=== PATIENT | female | born 1970 | race Caucasian/White ===

== ENCOUNTER → 2017-03-31 | Outpatient (CLI) | payer BC ==
[~2017-03-31] MED LIST: APIX1TAB PO; ATR10 PO; CEFD1CAP14 PO; DXM/4 PO; ELQ25 PO; FAMO1TAB47 PO; FLUT1SPR12 NAE; LAMO100T16 PO; LAMO25TA PO; MULT-506 PO; OXYC-57 PO; SPR25 PO; TRIATAB3 PO; VNTHFA/IN INH; ZONI100C39 PO; lovenox
--- NOTE | 2017-03-31 12:02 | DIAGNOSTIC IMAGING REPORT ---
LEFT LOWER EXTREMITY WITHOUT CT DOSE: 262.83 mGy.cm HISTORY: Ankle pain LEFT ANKLE PAIN TECHNIQUE: Multiaxial CT images of the left ankle were performed and reformatted in the sagittal and coronal plane without the use of contrast. A dose lowering technique was utilized adhering to the principles of ALARA. COMPARISON: None. FINDINGS: Findings consistent with open reduction internal fixation of what appears to been an old calcaneal fracture. There appears to be complete bony union. The articular services of the tibia as well as talus appears unremarkable. A plate and multiple screws are present at the lateral margin of the calcaneus. No acute bony abnormalities appreciated. Alignment is anatomic throughout. Findings consistent with a small old avulsion from the dorsal aspect of the navicular/anterior talus. Findings suggesting old healed fracture of the distal fibula. IMPRESSION: 1. Findings consistent with a prior calcaneal reconstruction procedure. 2. The hardware appears intact with healing considered essentially complete. 3. The ankle mortise is aligned anatomically with the articular services intact. 4. No acute process is identified. The above report was generated using voice recognition software. It may contain grammatical, syntax or spelling errors. Electronically signed by: Osmar Silveira M.D. 03/31/2017 12:01 PM Dictated Date/Time: 03/31/2017 11:56 AM
== END | disposition home or self-care (01) ==
LOC: C.CTS 11:26
PROVIDERS: ATTEND Orthopaedic Surgery Sports Medicine
DX: M25.572 Pain in left ankle and joints of left foot (principal)

== ENCOUNTER 2017-05-05 09:07 | Day surgery (SDC) | payer BC ==
[2017-04-18 09:41] VITALS: Ht 167.6 cm; Wt 93.0 kg
--- NOTE | 2017-04-18 10:21 | PAT Medication Instructions ---
Service Date Apr 18, 2017. Current Home Medication List Albuterol Hfa (Ventolin Hfa), 2-4 PUFFS INH Q6H PRN for PRN Apixaban (Eliquis), 2.5 MG PO BID Fluticasone Propionate (Nasal) (Flonase Allergy Relief Ch), 1 SPRAY SMITH DAILY PRN for ALLERGY Lamotrigine (Lamictal), 25 MG PO BID Lamotrigine (Lamictal), 100 MG PO BID Multivitamin (Multivitamin), 1 TAB PO QAM Triamterene/Hctz (Triamterene/Hctz 37.5-25MG), 1 TAB PO QAM Zonisamide (Zonegran), 200 PO BID Medication Instructions For Your Scheduled Surgery - Instructions to be given by prescribing physicians: Apixaban (Eliquis), 2.5 MG PO BID - Hold the following medications the morning of surgery: Multivitamin (Multivitamin), 1 TAB PO QAM Triamterene/Hctz (Triamterene/Hctz 37.5-25MG), 1 TAB PO QAM - Take the following medications the morning of surgery with a sip of water OTHERWISE NOTHING TO EAT OR DRINK AFTER MIDNIGHT: Albuterol Hfa (Ventolin Hfa), 2-4 PUFFS INH Q6H PRN for PRN (use if needed; BRING TO HOSPITAL) Zonisamide (Zonegran), 200 PO BID Lamotrigine (Lamictal), 25 MG PO BID Lamotrigine (Lamictal), 100 MG PO BID Fluticasone Propionate (Nasal) (Flonase Allergy Relief Ch), 1 SPRAY SMITH DAILY PRN for ALLERGY - Take the following medications as scheduled the night before surgery: Albuterol Hfa (Ventolin Hfa), 2-4 PUFFS INH Q6H PRN for PRN Zonisamide (Zonegran), 200 PO BID Lamotrigine (Lamictal), 25 MG PO BID Lamotrigine (Lamictal), 100 MG PO BID If you have any questions please call us at [phone] or [phone] or [phone]
[2017-04-18 12:37] LABS: URINE APPEARANCE CLEAR (CLEAR); URINE BILIRUBIN NEG (NEG); URINE COLOR YELLOW; URINE NITRITE NEG (NEG); URINE PH 7.5 (4.5-7.5); URINE SPECIFIC GRAVITY 1.022 (1.000-1.030); UROBILINOGEN NEG (NEG)
[2017-04-18 12:40] LABS: BASO % 0.3 %; BASO ABS # 0.02 K/uL (0-0.2); COMPLETE YES; EOS % 1.3 %; HEMATOCRIT 43.1 % (37-47); LYMPH % 22.6 %; LYMPH ABS # 1.41 K/uL (1.2-3.4); MEAN CELL VOLUME 98.9 fL (80-100); MEAN CORPUSCULAR HEMOGLOBIN 32.3 pg (25-34); MEAN CORPUSCULAR HGB CONC 32.7 g/dl (32-36); MEAN PLATELET VOLUME 9.8 fL (7.4-10.4); MONO % 8.2 %; NEUT % 67.6 %; PLATELET COUNT 317 K/uL (130-400); RED BLOOD COUNT 4.36 M/uL (4.2-5.4); WHITE BLOOD COUNT 6.24 K/uL (4.8-10.8)
[2017-04-18 12:48] LABS: BUN/CREATININE RATIO 18.8 (10-20); CALCIUM 9.1 mg/dl (8.5-10.1); CREATININE 1.1 mg/dl (0.60-1.20); INR 0.9 (0.9-1.1); PARTIAL THROMBOPLASTIN RATIO 1.2; POTASSIUM 4.5 mmol/L (3.5-5.1); PROTHROMBIN TIME (PATIENT) 10.1 SECONDS (9.0-12.0)
[2017-04-18 12:51] LABS: MANUAL MICROSCOPIC REQUIRED? NO; REVIEW REQ? NO
--- NOTE | 2017-05-04 16:41 | History and Physical ---
History & Physical Date May 04, 2017. Chief Complaint left hindfoot pain History of Present Illness The patient is a 47 year old female with complaints of chronic left ankle and hindfoot pain. She has a hx of a severe calcaneus and hindfoot injury in an accident. She had an ORIF of the calcaneus and primary subtalar fusion performed. She has had chronic pain since the procedure. She is being set up for surgical management of her pain. Past Medical/Surgical History Surgical Problems: (1) H/O brain surgery Allergies Coded Allergies: Phenobarbital (Unverified Allergy, Intermediate, CAUSES DEPRESSION, 04/18/17 ) Home Medications Scheduled Apixaban (Eliquis), 2.5 MG PO BID Lamotrigine (Lamictal), 25 MG PO BID Lamotrigine (Lamictal), 100 MG PO BID Multivitamin (Multivitamin), 1 TAB PO QAM Triamterene/Hctz (Triamterene/Hctz 37.5-25MG), 1 TAB PO QAM Zonisamide (Zonegran), 200 PO BID Scheduled PRN Albuterol Hfa (Ventolin Hfa), 2-4 PUFFS INH Q6H PRN for PRN Fluticasone Propionate (Nasal) (Flonase Allergy Relief Ch), 1 SPRAY SMITH DAILY PRN for ALLERGY Physical Examination Skin: warm/dry, no rash Eyes: normal inspection ENT: normal ENT inspection Head: normocephalic, atraumatic Neck: supple, trachea midline Respiratory/Chest: lungs clear, normal breath sounds, no respiratory distress Cardiovascular: regular rate, rhythm, no murmur Abdomen / GI: normal bowel sounds, non tender Extremities: + pertinent finding (Left ankle: hindfoot swelling. Tender at the anterior ankle and with PROM of the ankle. Tender at the sinus tarsi and heel. Hypersensitivity of the lateral ankle and foot. ) Neurologic/Psych: no motor/sensory deficits, alert, oriented x 3 Diagnosis Left ankle osteoarthritis and arthrofibrosis. Possible left subtalar fusion nonunion/partial union. Painful hardware left ankle Left achilles contracture. Left sural nerve neuropathy. Plan of Treatment Recommend a left ankle scope with debridement arthrofibrosis, exostectomy tibia and talus, open removal hardware, open lateral calcaneal wall decompression, possible revision subtalar fusion, possible application of Vivigen, possible perc. AYAN, open sural nerve decompression and neurolysis. All potential risks, benefits, complications, alternatives and rehab have been discussed with the patient and the patient wishes to proceed as indicated. She will be scheduled at 05.05.17 with Lovenox SQ for DVT prophylaxis.
[~2017-05-05] VITALS: Ht 167.6 cm; Wt 93.0 kg
[~2017-05-05 09:07] MED LIST changes: -ATR10 PO; +ATROPINE SULFATE 0.1 MG/ML 5ML SYR IV PRN; +CEFAZOLIN 2000 MG/60 ML D5W 60 ML IV SCH; -CEFD1CAP14 PO; -DXM/4 PO; -ELQ25 PO; +EpHEDrine SULFATE INJ 50 MG/ML AMP IV PRN; -FAMO1TAB47 PO; +FENTANYL CITRATE INJ 50 MCG/1 ML 2 ML VIAL IV PRN; +HYDROmorphone INJ 1 MG/ML SYR IV PRN; +LACTATED RINGER'S 1000ML 1,000 ML IV SCH; +ONDANSETRON INJ 2 MG/ML 2 ML VIAL IV PRN; -OXYC-57 PO; +ROPIVACAINE 0.5% 5 MG/ML 30 ML VIAL ONE; -SPR25 PO; -lovenox
[2017-05-05] MEDS ORDERED: lovenox (09:59)
[2017-05-05 10:06] VITALS: BP 114/79; PULSE 75; TEMP 36.6; O2SAT 99
[2017-05-05] MEDS ORDERED: FENTANYL CITRATE INJ 50 MCG/1 ML 2 ML VIAL ONE ×2 (11:21→14:43)
[2017-05-05] MEDS ORDERED: MIDAZOLAM HCL 1 MG/ML 2ML VIAL ONE ×3 (11:21→15:32)
[2017-05-05] MEDS ORDERED: BACITRACIN 50000 UNIT VIAL ONE (11:55)
[2017-05-05] MEDS ORDERED: BUPIVACAINE/EPINEPHRINE 0.25% 1:200,000 30 ML VIAL ONE (11:55)
--- NOTE | 2017-05-05 11:56 | History & Physical Bridge Note ---
H&P Re-Evaluation Bridge Note: I have examined the patient, reviewed the History & Physical and in the interval since the performance of the History & Physical I have noted the following changes of clinical significance: No changes noted
[2017-05-05] MEDS ORDERED: EpINEphrine HCL INJ 1 MG/ML 5ML SYRINGE ONE (13:00)
[2017-05-05] MEDS ORDERED: PROPOFOL IV EMULSION 10 MG/ML 20 ML VIAL IV ONE (15:14)
[2017-05-05] MEDS ORDERED: ONDANSETRON INJ 2 MG/ML 2 ML VIAL ONE (15:14)
[2017-05-05] MEDS ORDERED: ROCURONIUM BROMIDE 10 MG/ML 5 ML VIAL IV ONE (15:14)
[2017-05-05] MEDS ORDERED: DEXAMETHASONE SOD INJ 4 MG/ML VIAL ONE (15:14)
[2017-05-05] MEDS ORDERED: LIDOCAINE HCL 2% 2 ML VIAL (20MG/ML) ONE (15:14)
[2017-05-05] MEDS ORDERED: HYDROmorphone INJ 2 MG/ML SYR/VIAL ONE (15:15)
--- NOTE | 2017-05-05 15:33 | DIAGNOSTIC IMAGING REPORT ---
LEFT ANKLE 2 VIEWS CLINICAL HISTORY: Postoperative evaluation. COMPARISON STUDY: CT of the left ankle March 31, 2017. Fluoroscopy time: 10 seconds. FINDINGS: Single lateral fluoroscopic image demonstrates placement of a cannulated screw projecting over the hindfoot. Plate and screws shown on prior exam have been removed. Surgical device within the calcaneus persist. Subtalar joint fusion is noted. IMPRESSION: Intraoperative fluoroscopic image of the left ankle. Electronically signed by: Jonathan Villegas M.D. 05/05/2017 3:32 PM Dictated Date/Time: 05/05/2017 3:29 PM
--- NOTE | 2017-05-05 16:21 | [facility] Operative Report ---
Operative Report Operative Date May 05, 2017. Pre-Operative Diagnosis left exostosis of the tibia, exostosis of the talus. Arthrofibrosis of the ankle. Ankle and foot osteoarthritis, painful hardware, subfibular impingement. Exostosis of the calcaneus. Post-Operative Diagnosis left exostosis of the tibia, exostosis of the talus. Arthrofibrosis of the ankle. Ankle and foot osteoarthritis, painful hardware, subfibular impingement. Exostosis of the fibula. Exostosis of the calcaneus. Peroneus Brevis and peroneus longus longus Tendon tears, Subfibular impingement Procedure(s) Performed Left Ankle Arthroscopy with Debridement Arthrofibrosis, and Exostectomy Tibia / Talus; synovectomy ankle. Debridement peroneal tendons with repair peroneus brevis tendon tear; Open Removal Hardware (Plate and Screws) Lateral Calcaneus; Revision Subtalar Fusion with allograft; Exostectomy Of Fibula; Lateral Calcaneal Wall Decompression; Surgeon Dr. Rodrigeuz Culturist Surgeon(s) none Estimated Blood Loss 20 mL Findings See dictation Specimens a. explanted hardware Drains Hemovac times one Anesthesia Gen. LMA with popliteal block Complication(s) None Disposition Recovery Room / PACU Indications This is a 47-year-old woman who would previously sustained a traumatic fracture is location of her left calcaneus and subtalar joint. She had partial extrusion and crush injury of her left calcaneus and was cared for this injury at [facility] several years ago by Barrington Jarrett M.D. Patient underwent a primary subtalar fusion with lateral calcaneal plating. She developed exostoses and arthrofibrosis the ankle joint and had subfibular impingement on the plate as documented by radiographic and CT scanning of the lower extremity. She had failed all conservative measures and was scheduled for surgery as indicated. Description of Procedure All potential risks, benefits, complications, alternatives, rehabilitation, potential for incomplete relief of symptoms, need for further surgery, persistent numbness, weakness, stiffness, persistent pain, DVT, PE, , bone fracture, hardware breakage, nonunion, malunion or wound complications were discussed with the patient. The patient decided to proceed with the procedure as indicated. Procedure: The patient was administered a popliteal block in the preoperative holding area. She was then taken to the operative suite and placed supine on the operating table. After review of the consent and identification of proper operative site the patient was then anesthetized and an LMA was placed. A tourniquet was placed high on the left thigh over cast padding. The left lower extremity was then sterilely prepped and draped in usual fashion. Left lower extremities and elevated and exsanguinated and Esmarch bandage. The tourniquet was inflated to 350 mmHg. Approximately 12 mL of quarter percent Marcaine with epinephrine was injected into the ankle joint. An 11 blade scalpel was used to make an incision medial to the tibialis anterior follow placement of blunt trocar and sleeve, camera and inflow. Next lateral portal was established using an 18-gauge spinal needle followed by 11 blade scalpel incision. Arthrofibrosis was noted to be present in the ankle joint. A 3.5 mm sector pari introduced to the lateral portal and debridement of arthrofibrosis was performed. Next anterior exostoses of the tibia and talus were noted and these were then resected using a 4.0 mm barrel bur. After these resected particulate debris was flushed from the joint the articular surfaces were inspected and noted to be intact. No Os- Jamar defects. No particular softening of the joint surfaces. Good alignment. No loose bodies. The gutters were inspected noted to be unremarkable. Next the arthroscope was removed from the joint and the portal sites were closed using interrupted 4-0 nylon sutures. A 15 blade scalpel was then used to make an incision centered over the sinus Tarsi from the base the fourth metatarsal to the tip of the fibula. This incision was then deepened to the subcutaneous tissue. Meticulous hemostasis was achieved with cautery. The peroneal tendon sheath was identified and retracted and protected. The lateral plate and screws previously placed were identified and the plate and screws then removed. The plate was noted to have eroded into the distal aspect of the fibula. The lateral wall the calcaneus is noted to be prominent and resulting in subfibular impingement. The lateral wall /exostosis of the lateral calcaneus was then resected using a large osteotome and mallet. This bone was then saved for later graft use. The resultant exostosis of the distal tip of the fibula was also resected with a rongeur. Next the subtalar joint was inspected. The posterior facet had almost completely fused however over 50% of the subtalar joint did not fuse particular the anterior and middle facets of the subtalar joint had not fused. Next a curette and rongeur were then used to resect the remainder of the articular surfaces from the anterior and middle facets and this was then irrigated until clear with sternal saline. Next the joint surfaces were then further prepared with a 2 mm drill bit and a osteotome and mallet to increase surface area of the fusion space. Next morcellized autograft and approximately 15 mL of allograft was then impacted in the sinus Tarsi. Next a stab incision was made in the plantar aspect of the heel and a 2.25 mm guidepin was placed across the subtalar joint under live fluoroscopic assistance. This and followed by placement of a 7.3 mm cannulated screw to compress the subtalar joint. Next the peroneal tendons were then inspected. The peroneus longus and peroneus brevis were noted to have tears. The peroneus longus was partially torn and was debrided with a Metzenbaum scissor. The peroneus brevis tendon had been cut during previous surgery and this tendon was then carefully debrided with a Metzenbaum scissor and then repaired with a #2 ultra braid suture using a Krakw locking loop suture. This was then appropriately reapproximated. The wound was then irrigated with sterile normal saline. A 10 Mauritanian single lumen Hemovac drain was then placed into the incision site exiting on the dorsal lateral aspect of the foot. The peroneal tendon sheath was then closed using 2-0 Vicryl. The deep soft tissue and extensor digitorum brevis were then closed using 2-0 Vicryl. The dermis was then closed using buried interrupted 3-0 Vicryl. Skin was closed using 4-0 nylon. A sterile compressive dressing consisting of Acticoat, sterile 4 x 4's, 4 inch web roll, Tereso Thompson plaster splint and Bob wrap were applied. The foot was held in neutral dorsiflexion. The tourniquet was released, the patient was awakened and taken to recovery in stable condition. I attest to the content of the Intraoperative Record and any orders documented therein. Any exceptions are noted below.
--- NOTE | 2017-05-05 16:24 | Discharge Instructions ---
Discharge Instructions Date of Service May 05, 2017. Admission Reason for Admission: Left Ankle & Foot Osteoarthritis, Painful Hardware Discharge Discharge Diagnosis / Problem: Left Ankle & Foot Osteoarthritis, Painful Hardware Discharge Goals Goal(s): Decrease discomfort, Improve function Activity Recommendations Activity Limitations: per Instructions/Follow-up section Weightbearing Status: Left non-weightbearing . Instructions / Follow-Up Instructions / Follow-Up ACTIVITY RECOMMENDATIONS: Limitations: No weight bearing to affected limb at all times. SPECIAL CARE INSTRUCTIONS: * Some drainage onto the dressing is normal and is no cause for alarm. * Some swelling is natural especially after walking. * When resting, keep your foot elevated above the level of your heart. * Call [facility] if you notice: -Increased drainage -Fever over 101 degrees F -Severe constant pain BANDAGE: * Leave bandage/cast in place unless otherwise directed. * Keep bandage/cast dry at all times. FOLLOW UP VISIT WITH DR. WRIGHT If appointment is not already scheduled: Please call [facility] after you get home today to schedule a follow-up appointment for [address] Wright at . Current Hospital Diet Patient's current hospital diet: Discharge Diet Recommended Diet: Regular Diet Procedures Procedures Performed: Left Ankle Arthroscopy with Debridement Arthrofibrosis, and Exostectomy Tibia / Talus; synovectomy ankle. Debridement peroneal tendons with repair peroneus brevis tendon tear; Open Removal Hardware (Plate and Screws) Lateral Calcaneus; Revision Subtalar Fusion with allograft; Exostectomy Of Fibula; Lateral Calcaneal Wall Decompression; Pending Studies Studies pending at discharge: no Medical Emergencies . Who to Call and When: Medical Emergencies: If at any time you feel your situation is an emergency, please call 911 immediately. . Non-Emergent Contact Non-Emergency issues call your: Surgeon Call Non-Emergent contact if: temperature is above 101, your pain is not controlled, your pain is worsening, wound has increased drainage . "Provider Documentation" section prepared by Say Wright. . VTE Core Measure Inpt VTE Proph given/why not?: Other Anticoagulation (Eliquis as directed BID)
[2017-05-05] MEDS ORDERED: OXYCODONE/ACETAMINOPHEN 5-325 TAB PO PRN (16:30)
--- NOTE | 2017-05-05 16:43 | Anesthesiology Progress Note ---
Anesthesia Post Op Note Date & Time May 05, 2017 at 16:43 Vital Signs Pain Intensity: 0 Vital Signs Past 12 Hours Date Time Temp Pulse Resp B/P (MAP) Pulse Ox O2 Delivery O2 Flow Rate FiO2 05/05/17 16:30 85 14 120/72 95 Nasal Cannula 2 05/05/17 16:20 85 14 113/74 95 Nasal Cannula 2 05/05/17 16:10 87 14 114/72 94 Oxymask 10 05/05/17 16:00 36.4 84 14 113/63 94 Oxymask 10 05/05/17 15:50 36.4 88 14 110/62 96 Oxymask 10 05/05/17 10:06 36.6 75 18 114/79 (91) 99 Room Air Notes Mental Status: alert / awake / arousable, participated in evaluation Pt Amnestic to Procedure: Yes Nausea / Vomiting: adequately controlled Pain: adequately controlled Airway Patency, RR, SpO2: stable & adequate BP & HR: stable & adequate Hydration State: stable & adequate Anesthetic Complications: no major complications apparent
[2017-05-05 17:00] VITALS: BP 121/70; TEMP 36.9; O2SAT 93
--- NOTE | 2017-05-05 17:10 | DIAGNOSTIC IMAGING REPORT ---
LEFT FOOT MIN 3 VIEWS ROUTINE CLINICAL HISTORY: 47 years-old Female presenting with postop. TECHNIQUE: Frontal, oblique, and lateral views of the left foot were obtained. COMPARISON: None. FINDINGS: Overlying plaster splint markedly degrades evaluation of underlying osseous detail. Surgical fixation hardware noted in the hindfoot. A surgical drain is in place. Skin mile also noted. Grossly normal anatomic alignment. IMPRESSION: Markedly degraded evaluation secondary to overlying plaster splint. Grossly normal anatomic alignment with postsurgical changes. Electronically signed by: Kevon Clifton M.D. 05/05/2017 5:09 PM Dictated Date/Time: 05/05/2017 5:08 PM
[2017-05-05 17:32] VITALS: BP 98/59; PULSE 76; TEMP 36.5; O2SAT 97
[2017-05-05 18:00] VITALS: BP 105/66; PULSE 73; TEMP 36.5; O2SAT 95
== END 2017-05-05 18:20 | disposition home or self-care (01) ==
LOC: C.ACU 09:07
PROVIDERS: ATTEND Orthopaedic Surgery Sports Medicine
DX: T84.84XA Pain due to internal orthopedic prosthetic devices, implants and grafts, initial encounter (principal); Y83.1 Surgical operation with implant of artificial internal device as the cause of abnormal reaction of the patient, or of later complication, without mention of misadventure at the time of the procedure; S86.912D Strain of unspecified muscle(s) and tendon(s) at lower leg level, left leg, subsequent encounter; X58.XXXD Exposure to other specified factors, subsequent encounter; Z79.899 Other long term (current) drug therapy; G62.9 Polyneuropathy, unspecified; M62.472 Contracture of muscle, left ankle and foot; M24.672 Ankylosis, left ankle; M19.072 Primary osteoarthritis, left ankle and foot; Z87.828 Personal history of other (healed) physical injury and trauma; M89.8X7 Other specified disorders of bone, ankle and foot

== ENCOUNTER → 2018-01-03 | Outpatient (CLI) | payer OTHER ==
[~2018-01-03] MED LIST changes: -ATROPINE SULFATE 0.1 MG/ML 5ML SYR IV PRN; -CEFAZOLIN 2000 MG/60 ML D5W 60 ML IV SCH; -EpHEDrine SULFATE INJ 50 MG/ML AMP IV PRN; -FENTANYL CITRATE INJ 50 MCG/1 ML 2 ML VIAL IV PRN; -HYDROmorphone INJ 1 MG/ML SYR IV PRN; -LACTATED RINGER'S 1000ML 1,000 ML IV SCH; -ONDANSETRON INJ 2 MG/ML 2 ML VIAL IV PRN; -ROPIVACAINE 0.5% 5 MG/ML 30 ML VIAL ONE
--- NOTE | 2018-01-03 18:01 | EEG Procedure Note ---
EEG Procedure Note Date of Service Jan 03, 2018. Start / End Times Start Time: 10:27 AM End Time: 10:47 AM Referring Physician Steffen Toledo MD History This is a 47-year-old female with a history of epilepsy status post surgery. EEG to evaluate for epileptiform discharge activity due to reports of ongoing seizures. Home Medication List Scheduled Apixaban (Eliquis), 2.5 MG PO BID Lamotrigine (Lamictal), 25 MG PO BID Lamotrigine (Lamictal), 100 MG PO BID Multivitamin (Multivitamin), 1 TAB PO QAM Triamterene/Hctz (Triamterene/Hctz 37.5-25MG), 1 TAB PO QAM Zonisamide (Zonegran), 200 PO BID Scheduled PRN Albuterol Hfa (Ventolin Hfa), 2-4 PUFFS INH Q6H PRN for PRN Fluticasone Propionate (Nasal) (Flonase Allergy Relief Ch), 1 SPRAY SMITH DAILY PRN for ALLERGY Description This is a 21 electrode EEG with a single channel dedicated to limited EKG. The electrodes were placed in accordance with the International 10-20 system. At the start of the recording the patient was in an awake state. Background was well organized and composed of mixed alpha and beta frequencies. There was mild intermittent right temporal slowing during the awake state. There was a symmetric well-formed moderate amplitude 8-9 Hz posterior dominant rhythm that was reactive to eye opening and closure. Hyperventilation was not done. Intermittent photic stimulation at various frequencies produced no abnormalities. Drowsiness was indicated by slowing of the background rhythm, loss of muscle artifact, and vertex waves. There was no stage II sleep transients. Interpretation This is an abnormal routine EEG secondary to mild intermittent right temporal slowing. There was no electrographic seizures or epileptiform discharges. Clinical Correlation This EEG indicates a functional or structural cerebral dysfunction in the right temporal area.
== END | disposition home or self-care (01) ==
LOC: C.NEUR 10:00
PROVIDERS: ATTEND Psychiatry & Neurology Neurology
DX: G40.119 Localization-related (focal) (partial) symptomatic epilepsy and epileptic syndromes with simple partial seizures, intractable, without status epilepticus (principal)

== ENCOUNTER 2021-08-04 09:16 | Inpatient (IN) ==
[2021-08-04] MEDS ORDERED: LORazepam 2 MG/ML VIAL (IM USE) ONE (09:45)
[2021-08-04] MEDS ORDERED: LORazepam 2 MG/4 ML VIAL IV STA (09:46)
[2021-08-04] MEDS ORDERED: SODIUM CHLORIDE 0.9% 1000ML 1,000 ML IV SCH (09:46)
[2021-08-04 10:11] LABS: Basophils # (auto) 0.03 K/uL (0-0.2); Basophils % (auto) 0.3 %; Eosinophils # (auto) 0.01 K/uL (0-0.5); Eosinophils % (auto) 0.1 %; Hematocrit (blood only) 41.3 % (37-47); Hemoglobin 13.6 g/dL (12.0-16.0); Immature Granulocytes # (auto) 0.02 K/uL (0.00-0.02); Immature Granulocytes % (auto) 0.2 %; Lymphocytes # (auto) 1.53 K/uL (1.2-3.4); Lymphocytes % (auto) 13.8 %; Mean Corpuscular Hemoglobin 31.9 pg (25-34); Mean Corpuscular Hgb Conc 32.9 g/dL (32-36); Mean Corpuscular Volume 96.9 fL (80-100); Mean Platelet Volume 9.6 fL (7.4-10.4); Monocytes # (auto) 0.69 K/uL (0.11-0.59); Monocytes % (auto) 6.2 %; Neutrophils # (auto) 8.78 K/uL (1.4-6.5); Neutrophils % (auto) 79.4 %; Platelet Count 350 K/uL (130-400); RDW Coefficient of Variation 13.5 % (11.5-14.5); RDW Standard Deviation 47.9 fL (36.4-46.3); Red Blood Count 4.26 M/uL (4.2-5.4); White Blood Count 11.06 K/uL (4.8-10.8)
[2021-08-04 10:27] LABS: Alanine Aminotransferase 22 U/L (12-78); Albumin Level 3.4 gm/dl (3.4-5.0); Aspartate Aminotransferase 8 U/L (15-37); BUN Creatinine Ratio 9.8 (10-20); Blood Urea Nitrogen 10 mg/dl (7-18); Calcium 8.6 mg/dl (8.5-10.1); Carbon Dioxide 22 mmol/L (21-32); Chloride 112 mmol/L (98-107); Est GFR (African American) 72.2 ml/min; Est GFR (Non-African American) 62.3 ml/min; Glucose 121 mg/dl (70-99); Magnesium 2.2 mg/dl (1.8-2.4); Potassium 3.8 mmol/L (3.5-5.1); Sodium 142 mmol/L (136-145)
[2021-08-04 10:30] LABS: Albumin Globulin Ratio 0.9 (0.9-2); Alkaline Phosphatase 86 U/L (45-117); Bilirubin,Total 0.3 mg/dl (0.2-1); Globulin 3.9 gm/dl (2.5-4.0); Phosphorus 1.8 mg/dl (2.5-4.9); Total Protein 7.3 gm/dl (6.4-8.2)
[2021-08-04] MEDS ORDERED: SODIUM PHOSPHATE 21 MMOL in SODIUM CHLORIDE 0.9% 500 ML IV ONE (11:15)
[2021-08-04] MEDS ORDERED: lamoTRIgine 100 MG TAB PO STA (11:58)
--- NOTE | 2021-08-04 14:35 | History & Physical Report ---
Date of Service August 04, 2021 Assessment & Plan (1) Seizure disorder: (2) Petit mal epilepsy: Plan: Has Neurostimulator in place Follows with [facility] Neurology Patient is 51-year-old female with PMH seizure disorder with neurostimulator in place, HTN presented to ER for complaint of confusion and seizure. History obtained from patient's boyfriend and chart review. Patient's boyfriend reports 3 days ago she started with episodes of staring and rocking back and forth. He reports this is typical of her petit mall seizures. Denies grand mal seizure like activity. Seen at [facility] on 08/02/2021 & 08/03/2021 and discharged home. [facility] neurology recommended that patient's lamotrigine be increased from 125 mg twice daily to 150 mg twice daily. Today In ER pt afebrile, P: 87, R: 20, BP: 174/110 down to 131/74, 97% on RA. WBC: 11, known drug screen negative, UA unremarkable CT HEAD: Significant metallic artifact secondary to electronic stimulator device within the right side of the calvarium. This results in suboptimal evaluation of the brain. However, no definite acute intracranial abnormality. In ER was given 2 g Keppra, Ativan 2 mg IV, 1 L NSS, lamotrigine 150 mg p.o., ER had contacted [facility] neuro-Dr. Nguyen who had recommended lamotrigine 150 mg twice daily, continue Zonegran. Reports a long as patient woke up does not need transferred In ER patient drowsy but will follow limited commands Admit and monitor closely N.p.o. for now Lamotrigine level pending EEG Continue lamotrigine previously recommended 150 mg twice daily, continue zonisamide Neurology consult If patient with worsening or no improvement may need to consider transfer for continuous EEG monitoring CBC, BMP in a.m. (3) Hypertension: Plan: Stable Continue triamterene-HCTZ (4) Hypophosphatemia: Plan: K: 3.8, phos: 1.8, magnesium: 2.2. In ER given sodium phos 21 mmol Monitor and replace DVT Prophylaxis -SCDs Full Code as per discussion with pt's boyfriend Follows with Dr Esther Flores for routine care Pt was seen and care coordinated with Dr Wagner. See addendum History of Present Illness Chief Complaint: Seizure Primary Care Provider: Esther Flores Patient is 51-year-old female with PMH seizure disorder with neurostimulator in place, HTN presented to ER for complaint of confusion and seizure. History obtained from patient's boyfriend and chart review. Patient's boyfriend reports 3 days ago she started with episodes of staring and rocking back and forth. He reports this is typical of her petit mall seizures. He reports patient had prior history of grand mal seizures however since he has known her for the past 5 years she has had petit mall seizures. Patient follows with Dr. Toledo - Neurologist at [facility]. Reports two days ago patient seemed to have some confusion. She was seen at [facility] on 08/02/2021 and discharged home. States since discharge home she seems to be very tired and not talking very much and is also noticed some staring episodes and movement of her hand. She was re-evaluated at [facility] on 08/03/2021. She had negative CT scans there. Reported pt had fever yesterday that resolved, had negative COVID-19 test, negative influenza, UA, and no lactic acidosis or leukocytosis. ER records reviewed and reports that they had reached out to [facility] neurology and it was recommended that patient's lamotrigine be increased from 125 mg twice daily to 150 mg twice daily. Patient's boyfriend reports that she did not have her medications today and reports he presented to [facility] ER today secondary to patient not having any improvement. Denies any noted loss of consciousness loss of control bowel or bladder, or grand mal seizure-like activity. Denies any noted diaphoresis, vomiting, diarrhea. Denies patient complaining of any CP or abdominal pain and has not noted any SOB. He states patient has 1-2 drinks on holidays however has not had any alcohol recently. Denies any known recreational drugs. In ER pt afebrile, P: 87, R: 20, BP: 174/110 down to 131/74, 97% on RA. WBC: 11, K: 3.8, phos: 1.8, magnesium: 2.2. CT HEAD: Significant metallic artifact secondary to electronic stimulator device within the right side of the calvarium. This results in suboptimal evaluation of the brain. However, no definite acute intracranial abnormality. In ER was given 2 g Keppra, Ativan 2 mg IV, 1 L NSS, lamotrigine 150 mg p.o., sodium phos 21 mmol ER had contacted [facility] neuro-Dr. Nguyen who had recommended lamotrigine 150 mg twice daily, continue Zonegran. Reports a long as patient woke up does not need transferred In ER patient drowsy but will follow limited commands. Allergies Allergy/AdvReac Type Severity Reaction Status Date / Time phenobarbital Allergy Intermediate CAUSES Unverified 08/04/21 10:24 DEPRESSION Home Medications Medication Instructions Recorded Confirmed Type aspirin 81 mg tablet,delayed 81 mg PO DAILY 08/04/21 08/04/21 History release lamotrigine 100 mg tablet 100 mg PO BID 08/04/21 08/04/21 History lamotrigine 25 mg tablet 25 mg PO BID 08/04/21 08/04/21 History triamterene 37.5 1 cap PO DAILY 08/04/21 08/04/21 History mg-hydrochlorothiazide 25 mg capsule zonisamide 100 mg capsule 200 mg PO QAM 08/04/21 08/04/21 History zonisamide 100 mg capsule 300 mg PO HS 08/04/21 08/04/21 History Past Med/Surg History Medical History (Updated 08/04/21 @ 18:13 by Flory Pollock PA-C) Hypertension Petit mal epilepsy Seizure disorder Surgical History Hx of brain surgery Neurotransmitter-Neuropace Family History Other Coronary heart disease Hypertension Social History Smoking Status: Never smoker Hx Alcohol Use: Yes Alcohol Intake Frequency Comment: Holidays Hx Substance Use: No Feels Safe at Home: Yes Review of Systems Review of Systems: All systems reviewed & are unremarkable except as noted in HPI & below Physical Exam Physical Exam: General: no acute distress, obese Head: normocephalic, atraumatic Eyes: PERRL, unable to test EOMs, conjunctiva non-injected, anicteric ENT: normal inspection external ears, nose, mucous membranes moist Neck: supple, trachea midline Lungs: clear, no respiratory distress, no wheezing/rhonchi/rales CV: RRR, no murmur, no pretibial edema Abd: normal BS, soft, no apparent tenderness to palpation Ext: no cyanosis, no erythema Neuro: Drowsy, does awaken to name. Will open and close eyes on command. Noted to have episode starring with rightward gaze. Will follow commands of squeezing fists and moving feet and hands. Network Support Specialist strength appears equal bilaterally. Does not speak Skin: warm, dry Results & Data Results & Data ([facility]) Vital Signs (Past 12 Hours) Vital Signs Temp Pulse Pulse Resp BP BP Pulse Ox 08/04/21 14:00 82 18 127/76 94 08/04/21 13:30 82 16 139/82 96 08/04/21 13:22 81 18 131/74 08/04/21 13:00 84 18 08/04/21 12:30 81 19 176/102 H 96 08/04/21 12:00 81 19 08/04/21 11:30 81 17 97 08/04/21 11:00 83 18 08/04/21 10:30 85 18 174/95 H 08/04/21 10:00 81 18 144/86 H 99 08/04/21 09:38 82 20 137/76 98 08/04/21 09:37 81 20 98 08/04/21 09:36 82 19 97 08/04/21 09:31 82 20 98 08/04/21 09:17 36.8 C 87 20 174/110 H 97 Laboratory Results Short CBC 08/04/21 Range/Units 09:48 WBC 11.06 H (4.8-10.8) K/uL Hgb 13.6 (12.0-16.0) g/dL Hct 41.3 (37-47) % Plt Count 350 (130-400) K/uL BMP 08/04/21 09:48 Sodium 142 Potassium 3.8 Chloride 112 H Carbon Dioxide 22 BUN 10 Creatinine 1.05 Glucose 121 H Calcium 8.6 Liver Function 08/04/21 Range/Units 09:48 Total Bilirubin 0.3 (0.2-1) mg/dl AST 8 L (15-37) U/L ALT 22 (12-78) U/L Alkaline Phosphatase 86 (45-117) U/L Albumin 3.4 (3.4-5.0) gm/dl Urine 08/04/21 Range/Units 16:26 Urine Color Yellow Urine Appearance Clear (Clear) Urine pH 7.5 (4.5-7.5) Ur Specific [place] 1.014 (1.000-1.030) Urine Protein Negative (Negative) Urine Glucose (UA) Negative (Negative) Diagnostic Findings Head CT 08/04/21 14:[address] DOSE: 537.48 mGy.cm HISTORY: seizure TECHNIQUE: Multiaxial CT images of the head were performed without the use of intravenous contrast. Automated exposure control was utilized for this study. A dose lowering technique was utilized adhering to the principles of ALARA. Comparison: Head CT 01/19/2016. Findings: The paranasal sinuses and mastoid air cells are clear. Interval placement of a right calvarial electronic stimulator device with leads extending into the right temporal and frontal lobes. These result in significant metallic artifact with suboptimal evaluation of the brain. The residual visualized brain parenchyma shows no definite mass, hematoma, midline shift, acute infarct. The patient is small focal area of encephalomalacia within the right temporal lobe anteriorly. This could be due to the postoperative change. Impression: Significant metallic artifact secondary to an electronic stimulator device within the right side of the calvarium. This results in suboptimal evaluation of the brain. However, no definite acute intracranial abnormality. ACT 112: Negative or not required by law. Electronically signed by: Omari Lopez M.D. 08/04/2021 3:25 PM Chest X-Ray 08/04/21 15:00 XR chest 1V portable CLINICAL HISTORY: seizure. Evaluate cardiopulmonary status COMPARISON STUDY: 01/19/2016 TECHNIQUE: 1 view of the chest FINDINGS: Single frontal view of the chest demonstrates the cardiomediastinal silhouette to be within normal limits. There is a decreased inspiratory effort with elevation of the hemidiaphragms and crowding of the bronchovascular markings at the lung bases and centrally. The lungs are clear of alveolar opacities. There is no evidence for pleural effusion. There is no evidence for vascular congestion. There is no acute osseous pathology. IMPRESSION: There is a decreased inspiratory effort with otherwise no acute chest disease. ACT 112: Negative or not required by law. Electronically signed by: Eliud Biggs M.D. 08/04/2021 3:32 PM Code Status & VTE Plan VTE Prophylaxis Plan VTE Prophylaxis will be ordered: Yes Supervising Physician Co-Signing Physician Notes juanlily since 20 years, monitoring device, SAD no. Mon to ER for nausea, sick and feeling of dying----K low, replaced and sent back; Tue AM lethargic--BF drove to ER, fever---covid, flu and other neg; fever settled and back home; Today AM couldn't talk luz marina here. Has had multiple seizures since last 3 days daily, hasn't taken her meds last night and today AM per BF. Resume meds, swallow screeen, neuro consult. Upon Exam GENERAL: Drowsy & easily goes back to sleep but Oriented x 4. , on RA. HEENT: No pallor, no icterus. Pupils equal, round and reactive to light. Oral mucosa moist. NECK: No JVD, no neck masses. HEART: S1 and S2 heard. Regular rate and rhythm. No murmur, no gallop. RESPIRATORY SYSTEM: Normal AP diameter. No accessory muscle use. No wheezing, no crackles. ABDOMEN: Soft, bowel sounds present, nontender, no distention. CENTRAL NERVOUS SYSTEM: No facial droop. Speech is clear. Obeys simple commands. Moves extremities. EXTREMITIES: trace edema, no erythema seen. (1) Petit mal epilepsy Intractability: intractable Status epilepticus: without status epilepticus Qualified Code(s): G40.A19 - Absence epileptic syndrome, intractable, without status epilepticus
--- NOTE | 2021-08-04 15:27 | CT Scan Report ---
HEAD CT NONCONTRAST CT DOSE: 537.48 mGy.cm HISTORY: seizure TECHNIQUE: Multiaxial CT images of the head were performed without the use of intravenous contrast. A utomated exposure control was utilized for this study. A dose lowering technique was utilized adheri ng to the principles of ALARA. Comparison: Head CT 01/19/2016. Findings: The paranasal sinuses and mastoid air cells are clear. Interval placement of a right calvar ial electronic stimulator device with leads extending into the right temporal and frontal lobes. Thes e result in significant metallic artifact with suboptimal evaluation of the brain. The residual visua lized brain parenchyma shows no definite mass, hematoma, midline shift, acute infarct. The patient is small focal area of encephalomalacia within the right temporal lobe anteriorly. This could be due to the postoperative change. Impression: Significant metallic artifact secondary to an electronic stimulator device within the right side of t he calvarium. This results in suboptimal evaluation of the brain. However, no definite acute intracra nial abnormality. ACT 112: Negative or not required by law. Electronically signed by: Omari Lopez M.D. 08/04/2021 3:25 PM
--- NOTE | 2021-08-04 15:29 | Emergency Department Note ---
Impression & Plan Petit mal epilepsy ED Provider Note CHIEF COMPLAINT: Seizure, seizure d/o HISTORY OF PRESENT ILLNESS: This 51 yo female patient presents to the emergency department with c/o AMS per s/o. Pt has a history of petit mal seizures and is on Zonegran and Lamictal. Patient has been at the [facility] each of the last 2 days for similar symptoms. Patient had a CAT scan at each of those ED vi sits that were negative for acute findings per the significant other. She was advised to increase a seizure medication however he states she has not been able to take her medications because she has been so "out of it." The patient was not able to speak to him today and has had multiple petit mal seizures, therefore he came to our facility for further management. She is followed at [facility] by neurology. She apparently has an implanted seizure monitoring device. She did receive IV Keppra yesterday and was advised to increase her Lamictal to 150 mg twice daily from 125 mg twice daily per records. Patient has not had any oral medications since 2 PM yesterday. REVIEW OF SYSTEMS: A review of systems was performed with positives and pertinent negatives listed in the history of present illness. 10 systems were reviewed and are otherwise negative. ALLERGIES: see below MEDICATIONS: see below PMH: see below SOCIAL HISTORY: see below DDx: Epilepsy, infection, hypoglycemia, electrolyte abnormalities, cardiac sources, intracerebral event, trauma, toxicologic, neurologic, syncope, as well as other pathologies. PHYSICAL EXAM: Vital signs reviewed. General: Well-appearing but somnolent 51 yo female, in no significant distress. HEENT: No scleral icterus, PERRLA, neck supple. Atraumatic. Cardiovascular: Regular rate and rhythm, no extra sounds. Pulmonary: Clear to auscultation bilaterally, normal work of breathing. Abdomen: Soft, obese, nontender, nondistended, positive bowel sounds. Musculoskeletal: Atraumatic, no peripheral edema. Neurologic: Patient somnolent but arousable. Answers one word response. 15-20 sec partial seizure episode x 2 witnessed. right leg shaking, right hand rag shredder and head turn to the left. subtle movements and resolves quickly. Skin: Warm, dry, no rash EMERGENCY DEPARTMENT COURSE/MDM: This pt was evaluated and appeared to be in no distress. IV access was obtained and laboratory work was drawn. Patient was placed on a cardiac technician with seizure precautions maintained. Patient was medicated with 2 mg of IV Ativan for apparent seizure activity. She was hydrated with normal saline solution. No imaging was performed as stated she had had 2 CT scans earlier at an outside facility. The records from that facility were obtained in fact the CT was negative for acute intracranial abnormality. The patient was loaded with 2 g of IV Keppra. She was noted to have no fever and only a very mild white count. Lactate is normal and vital signs have remained stable. Patient was reevaluated and able to wake up, she was given her Lamictal 150 mg orally by myself without difficulty. I did speak with on-call neurology at [facility], Dr. Godfrey. She has recommended admission to our facility for medication administration and mental status monitoring. Once patient is able to get her blood levels therapeutic her mental status should begin to clear as it does not appear to be infectious or metabolic. 24-hour EEG monitoring does not appear to be necessary at this time. The patient was reevaluated several times and although somnolent is arousable and her seizure activity seems to have subsided. She was discussed with the hospitalist service who will evaluate. Her she has agreed to take the patient in transfer if her medical course does not proceed as anticipated. Patient and her significant other were updated as to the plan and agreed. MONITORING: An order for cardiac monitoring was placed and the patient is noted to be in a NSR at 82 beats per minute. RADIOLOGY: see below EKG:NSR at 71 bpm with normal QTc, normal axis, no PVC, no PAC. normal ST segments. DISPOSITION: admit I have personally spent 60 minutes of critical care time in the direct management of this patient. This was a life/limb threatening event. This 60 minutes is in excess of all separately billable procedures. Past Med/Surg History Medical History Hypertension Petit mal epilepsy Social History Smoking Status: Never smoker Feels Safe at Home: Yes Allergies Allergies Allergy/AdvReac Type Severity Reaction Status Date / Time phenobarbital Allergy Intermediate CAUSES Unverified 08/04/21 10:24 DEPRESSION Home Meds Home Medications Medication Instructions Recorded Confirmed aspirin 81 mg tablet,delayed 81 mg PO DAILY 08/04/21 08/04/21 release lamotrigine 100 mg tablet 100 mg PO BID 08/04/21 08/04/21 lamotrigine 25 mg tablet 25 mg PO BID 08/04/21 08/04/21 triamterene 37.5 1 cap PO DAILY 08/04/21 08/04/21 mg-hydrochlorothiazide 25 mg capsule zonisamide 100 mg capsule 200 mg PO QAM 08/04/21 08/04/21 zonisamide 100 mg capsule 300 mg PO HS 08/04/21 08/04/21 Results & Data (ED) Vital Signs Vital Signs - 24 hr 08/04/21 09:17 08/04/21 09:31 08/04/21 09:36 Temperature 36.8 C Temperature Source Temporal Artery Scan Pulse Rate 87 82 82 Pulse Rate [Apical] Pulse Rate from SpO2 Sensor 82 Pulse Rhythm [Apical] Pulse Strength [Apical] Respiratory Rate 20 20 19 Respiratory Effort / Characteristics Non-Labored Spontaneous Respiratory Depth Normal Respiratory Pattern Blood Pressure 174/110 H Blood Pressure [Left Arm] Blood Pressure Mean 131 Blood Pressure Mean [Left Arm] Blood Pressure Position [Left Arm] Pulse Oximetry 97 98 97 Oxygen Delivery Method Room Air Room Air Sepsis New/Unexplained Change in Mental Status N/A Sepsis Action Taken by Nursing No Action Required 08/04/21 09:37 08/04/21 09:38 08/04/21 10:00 Temperature Temperature Source Pulse Rate 81 81 Pulse Rate [Apical] 82 Pulse Rate from SpO2 Sensor 82 Pulse Rhythm [Apical] Pulse Strength [Apical] Respiratory Rate 20 20 18 Respiratory Effort / Characteristics Non-Labored Spontaneous Respiratory Depth Normal Respiratory Pattern Regular Blood Pressure 144/86 H Blood Pressure [Left Arm] 137/76 Blood Pressure Mean 105 Blood Pressure Mean [Left Arm] 96 Blood Pressure Position [Left Arm] Pulse Oximetry 98 98 99 Oxygen Delivery Method Room Air Room Air Sepsis New/Unexplained Change in Mental Status Sepsis Action Taken by Nursing 08/04/21 10:30 08/04/21 11:00 08/04/21 11:30 Temperature Temperature Source Pulse Rate 85 83 81 Pulse Rate [Apical] Pulse Rate from SpO2 Sensor 81 Pulse Rhythm [Apical] Pulse Strength [Apical] Respiratory Rate 18 18 17 Respiratory Effort / Characteristics Respiratory Depth Respiratory Pattern Blood Pressure 174/95 H Blood Pressure [Left Arm] Blood Pressure Mean 121 Blood Pressure Mean [Left Arm] Blood Pressure Position [Left Arm] Pulse Oximetry 97 Oxygen Delivery Method Sepsis New/Unexplained Change in Mental Status Sepsis Action Taken by Nursing 08/04/21 12:00 08/04/21 12:30 08/04/21 13:00 Temperature Temperature Source Pulse Rate 81 81 84 Pulse Rate [Apical] Pulse Rate from SpO2 Sensor 84 Pulse Rhythm [Apical] Pulse Strength [Apical] Respiratory Rate 19 19 18 Respiratory Effort / Characteristics Respiratory Depth Respiratory Pattern Blood Pressure 176/102 H Blood Pressure [Left Arm] Blood Pressure Mean 126 Blood Pressure Mean [Left Arm] Blood Pressure Position [Left Arm] Pulse Oximetry 96 Oxygen Delivery Method Sepsis New/Unexplained Change in Mental Status Sepsis Action Taken by Nursing 08/04/21 13:22 08/04/21 13:30 08/04/21 14:00 Temperature Temperature Source Pulse Rate 82 82 Pulse Rate [Apical] 81 Pulse Rate from SpO2 Sensor 83 83 Pulse Rhythm [Apical] Regular Pulse Strength [Apical] Normal Respiratory Rate 18 16 18 Respiratory Effort / Characteristics Non-Labored Respiratory Depth Normal Respiratory Pattern Regular Blood Pressure 139/82 127/76 Blood Pressure [Left Arm] 131/74 Blood Pressure Mean 101 93 Blood Pressure Mean [Left Arm] 93 Blood Pressure Position [Left Arm] Lying Pulse Oximetry 96 94 Oxygen Delivery Method Sepsis New/Unexplained Change in Mental Status Sepsis Action Taken by Nursing 08/04/21 14:30 08/04/21 14:48 08/04/21 15:00 Temperature Temperature Source Pulse Rate 76 83 Pulse Rate [Apical] 82 Pulse Rate from SpO2 Sensor 84 Pulse Rhythm [Apical] Regular Pulse Strength [Apical] Normal Respiratory Rate 20 18 18 Respiratory Effort / Characteristics Non-Labored Respiratory Depth Normal Respiratory Pattern Blood Pressure 136/84 127/81 Blood Pressure [Left Arm] 136/84 Blood Pressure Mean 101 96 Blood Pressure Mean [Left Arm] 101 Blood Pressure Position [Left Arm] Lying Pulse Oximetry 96 98 99 Oxygen Delivery Method Room Air Sepsis New/Unexplained Change in Mental Status Sepsis Action Taken by Retirement Medications Current Medication List: was personally reviewed by me Laboratory Data Attestation: I reviewed the patient's lab results. Result diagrams: 08/04/21 09:48 08/04/21 09:48 Lab Results 08/04/21 08/04/21 08/04/21 Range/Units 09:48 09:48 09:50 WBC 11.06 H (4.8-10.8) K/uL RBC 4.26 (4.2-5.4) M/uL Hgb 13.6 (12.0-16.0) g/dL Hct 41.3 (37-47) % MCV 96.9 (80-100) fL MCH 31.9 (25-34) pg MCHC 32.9 (32-36) g/dL RDW Std Deviation 47.9 H (36.4-46.3) fL RDW Coeff of Oumou 13.5 (11.5-14.5) % Plt Count 350 (130-400) K/uL MPV 9.6 (7.4-10.4) fL Immature Gran % (Auto) 0.2 % Neut % (Auto) 79.4 % Lymph % (Auto) 13.8 % Hunt % (Auto) 6.2 % Eos % (Auto) 0.1 % Baso % (Auto) 0.3 % Neut # (Auto) 8.78 H (1.4-6.5) K/uL Lymph # (Auto) 1.53 (1.2-3.4) K/uL Hunt # (Auto) 0.69 H (0.11-0.59) K/uL Eos # (Auto) 0.01 (0-0.5) K/uL Baso # (Auto) 0.03 (0-0.2) K/uL Immature Gran # (Auto) 0.02 (0.00-0.02) K/uL Sodium 142 (136-145) mmol/L Potassium 3.8 (3.5-5.1) mmol/L Chloride 112 H (98-107) mmol/L Carbon Dioxide 22 (21-32) mmol/L Anion Gap 8.0 (3-11) BUN 10 (7-18) mg/dl Creatinine 1.05 (0.6-1.2) mg/dl Est Cr Clr Drug Dosing Not Reportable Est GFR ( Amer) 72.2 ml/min Est GFR (Non-Af Amer) 62.3 ml/min BUN/Creatinine Ratio 9.8 L (10-20) Glucose 121 H (70-99) mg/dl Lactate (0.4-2.0) mmol/L Calcium 8.6 (8.5-10.1) mg/dl Phosphorus 1.8 L (2.5-4.9) mg/dl Magnesium 2.2 (1.8-2.4) mg/dl Total Bilirubin 0.3 (0.2-1) mg/dl AST 8 L (15-37) U/L ALT 22 (12-78) U/L Alkaline Phosphatase 86 (45-117) U/L Total Protein 7.3 (6.4-8.2) gm/dl Albumin 3.4 (3.4-5.0) gm/dl Globulin 3.9 (2.5-4.0) gm/dl Albumin/Globulin Ratio 0.9 (0.9-2) SARS-CoV-2, RNA, NAAT NEGATIVE (NEGATIVE) 08/04/21 Range/Units 11:15 WBC (4.8-10.8) K/uL RBC (4.2-5.4) M/uL Hgb (12.0-16.0) g/dL Hct (37-47) % MCV (80-100) fL MCH (25-34) pg MCHC (32-36) g/dL RDW Std Deviation (36.4-46.3) fL RDW Coeff of Oumou (11.5-14.5) % Plt Count (130-400) K/uL MPV (7.4-10.4) fL Immature Gran % (Auto) % Neut % (Auto) % Lymph % (Auto) % Hunt % (Auto) % Eos % (Auto) % Baso % (Auto) % Neut # (Auto) (1.4-6.5) K/uL Lymph # (Auto) (1.2-3.4) K/uL Hunt # (Auto) (0.11-0.59) K/uL Eos # (Auto) (0-0.5) K/uL Baso # (Auto) (0-0.2) K/uL Immature Gran # (Auto) (0.00-0.02) K/uL Sodium (136-145) mmol/L Potassium (3.5-5.1) mmol/L Chloride (98-107) mmol/L Carbon Dioxide (21-32) mmol/L Anion Gap (3-11) BUN (7-18) mg/dl Creatinine (0.6-1.2) mg/dl Est Cr Clr Drug Dosing Est GFR ( Amer) ml/min Est GFR (Non-Af Amer) ml/min BUN/Creatinine Ratio (10-20) Glucose (70-99) mg/dl Lactate 0.9 (0.4-2.0) mmol/L Calcium (8.5-10.1) mg/dl Phosphorus (2.5-4.9) mg/dl Magnesium (1.8-2.4) mg/dl Total Bilirubin (0.2-1) mg/dl AST (15-37) U/L ALT (12-78) U/L Alkaline Phosphatase (45-117) U/L Total Protein (6.4-8.2) gm/dl Albumin (3.4-5.0) gm/dl Globulin (2.5-4.0) gm/dl Albumin/Globulin Ratio (0.9-2) SARS-CoV-2, RNA, NAAT (NEGATIVE) Administered Medications Discontinued Medications Lorazepam (Ativan) 2 mg in 4 mls @ 4 mls/min IV NOW STA Stop: 08/04/21 09:47 Last Admin: 08/04/21 09:50 Dose: 4 mls/min Documented by: [id number] Sodium Chloride (Nss 1000ml) 1,000 mls @ 999 mls/hr IV .Q1H1M LORELEI Stop: 08/04/21 10:46 Last Infusion: 08/04/21 11:09 Dose: 0 mls/hr Documented by: [id number] Admin: 08/04/21 10:07 Dose: 999 mls/hr Documented by: [id number] Sodium Phosphate 21 mmol/ (Sodium Chloride) 507 mls @ 125 mls/hr IV ONE ONE Stop: 08/04/21 15:18 Last Admin: 08/04/21 11:25 Dose: 125 mls/hr Documented by: [id number] Levetiracetam 2,000 mg/ Sodium (Chloride) 270 mls @ 999 mls/hr IV NOW STA Stop: 08/04/21 11:50 Last Infusion: 08/04/21 12:58 Dose: 0 mls/hr Documented by: [id number] Admin: 08/04/21 12:04 Dose: 999 mls/hr Documented by: [id number] Lamotrigine (Lamotrigine 100 Mg Tab) 150 mg PO NOW STA Stop: 08/04/21 11:59 Last Admin: 08/04/21 12:51 Dose: Not Given Documented by: [id number] Lorazepam (Lorazepam 2 Mg/Ml Vial (Im Use)) Confirm Administered Dose 2 mg .ROUTE .STK-MED ONE Stop: 08/04/21 09:46 Last Admin: 08/04/21 09:50 Dose: Not Given Documented by: [id number] Blood Pressure Blood Pressure Findings: Normal blood pressure Blood Pressure Disposition: did not require urgent referral Discharge Plan Visit Data Chief Complaint: Seizure Stated Complaint: EPILEPTC/HAS BEEN HAVING SEIZURES ED Provider: Emma Valladares Discharge Problem: Petit mal epilepsy Forms Stand Alone Forms: [facility] Prescriptions Prescriptions: No Action aspirin 81 mg Tablet,Delayed Release (Dr/Ec) 81 mg PO DAILY RF: 0 triamterene-hydrochlorothiazid 37.5-25 mg capsule 1 cap PO DAILY RF: 0 lamotrigine 25 mg tablet 25 mg PO BID RF: 0 zonisamide 100 mg capsule 200 mg PO QAM RF: 0 zonisamide 100 mg capsule 300 mg PO HS RF: 0 lamotrigine 100 mg tablet 100 mg PO BID RF: 0 Referrals Referrals: Esther Flores CRNP [Primary Care Provider] - Discharge Problem: Petit mal epilepsy Qualifiers: Intractability: intractable Status epilepticus: without status epilepticus Qualified Code(s): G40.A19 - Absence epileptic syndrome, intractable, without status epilepticus
--- NOTE | 2021-08-04 15:33 | XRay Report ---
XR chest 1V portable CLINICAL HISTORY: seizure. Evaluate cardiopulmonary status COMPARISON STUDY: 01/19/2016 TECHNIQUE: 1 view of the chest FINDINGS: Single frontal view of the chest demonstrates the cardiomediastinal silhouette to be within normal li mits. There is a decreased inspiratory effort with elevation of the hemidiaphragms and crowding of th e bronchovascular markings at the lung bases and centrally. The lungs are clear of alveolar opacities . There is no evidence for pleural effusion. There is no evidence for vascular congestion. There is n o acute osseous pathology. IMPRESSION: There is a decreased inspiratory effort with otherwise no acute chest disease. ACT 112: Negative or not required by law. Electronically signed by: Eliud Biggs M.D. 08/04/2021 3:32 PM
[2021-08-04] MEDS ORDERED: LORazepam 2 MG/4 ML VIAL IV PRN (16:21)
[2021-08-04] MEDS ORDERED: ACETAMINOPHEN 325 MG TAB PO PRN (16:21)
[2021-08-04 16:44] LABS: Appearance Urine Clear (Clear); Bacteria Urine Automated Negative (Negative); Bilirubin Urine Negative (Negative); Blood Urine Negative (Negative); Color Urine Yellow; Epithelial Cell Urine Auto >30 /lpf (0-5); Glucose Urine UA Negative (Negative); Ketones Urine Trace (Negative); Leukocyte Esterase Urine Trace (Negative); Nitrite Urine Negative (Negative); Protein Urine Negative (Negative); RBC Urine Automated 0-4 /hpf (0-4); Specific Gravity Urine 1.014 (1.000-1.030); Urobilinogen Urine Negative (Negative); pH Urine 7.5 (4.5-7.5)
[2021-08-04 16:59] LABS: Amphetamines+Metham, Urine Neg (Neg); Barbiturates, Urine Neg (Neg); Benzodiazepine, Urine Neg (Neg); Cocaine, Urine Neg (Neg); MDMA (Ecstacy), Urine Neg (Neg); Methadone, Urine Neg (Neg); Opiate, Urine Neg (Neg); Phencyclidine, Urine Neg (Neg)
[2021-08-04] MEDS ORDERED: ACETAMINOPHEN 650 MG SUPP PR PRN (20:24)
[2021-08-04] MEDS ORDERED: [UNRECOGNIZED DRUG - REMARK] STA (20:34)
[2021-08-04] MEDS ORDERED: VANCOMYCIN CONSULT ACTIVE PRN (20:34)
[2021-08-04] MEDS ORDERED: VANCOMYCIN HCL 2,250 MG in SODIUM CHLORIDE 0.9% 500 ML IV ONE (21:00)
[2021-08-04] MEDS ORDERED: ZONISAMIDE 100 MG CAPSULE PO SCH (21:00)
[2021-08-04] MEDS: cefTRIAXone SODIUM 2,000 MG in DEXTROSE 5% 50 ML IV SCH (21:14)
--- NOTE | 2021-08-04 21:28 | Pharmacy Report ---
Pharmacy Abx Dose Short Note - Date of Service August 04, 2021 - Assessment & Plan Assessment 51 year old F receiving vancomycin and Rocephin for treatment of empiric therapy Day # 1 of antimicrobial therapy. Plan Vancomycin * vancomycin 2250 mg IV x 1 (20 mg/kg) * vancomycin 1250 mg IV q12 hours (11 mg/kg - lower mg/kg due to body habitus); population kinetics suggest half-life of 6.93 hours with elimination constant of 0.1 hr-1 * Goal trough level for empiric : 15 to 20 mcg/mL * Trough to be ordered if extended beyond empiric therapy Pharmacy will continue to follow and will adjust dose/frequency as necessary. Thank you.
[2021-08-04] MEDS: lamoTRIgine 100 MG TAB PO SCH (21:50)
--- NOTE | 2021-08-05 06:41 | Electrocardiogram Report ---
Test Reason : Blood Pressure : / mmHG Vent. Rate : 071 BPM Atrial Rate : 071 BPM P-R Int : 158 ms QRS Dur : 092 ms QT Int : 394 ms P-R-T Axes : 063 067 042 degrees QTc Int : 428 ms Normal sinus rhythm Normal ECG When compared with ECG of 19-JAN-2016 18:20, No significant change was found Confirmed by Bakari Galindo ([id number]) on 08/05/2021 6:41:19 AM Referred By: REFERRED SELF Confirmed By:Bakari Galindo
[2021-08-05 06:43] LABS: Hematocrit (blood only) 38.8 % (37-47); Hemoglobin 12.7 g/dL (12.0-16.0); Mean Corpuscular Hemoglobin 31.6 pg (25-34); Mean Corpuscular Hgb Conc 32.7 g/dL (32-36); Mean Corpuscular Volume 96.5 fL (80-100); Mean Platelet Volume 9.6 fL (7.4-10.4); Platelet Count 316 K/uL (130-400); RDW Coefficient of Variation 13.4 % (11.5-14.5); RDW Standard Deviation 47.2 fL (36.4-46.3); Red Blood Count 4.02 M/uL (4.2-5.4); White Blood Count 8.57 K/uL (4.8-10.8)
[2021-08-05 07:12] LABS: Calcium 8.2 mg/dl (8.5-10.1); Creatinine Clr Calc Pharmacy 97.7 ml/min; Est GFR (African American) 88.2 ml/min; Est GFR (Non-African American) 76.1 ml/min; Magnesium 2.1 mg/dl (1.8-2.4); Phosphorus 1.8 mg/dl (2.5-4.9); Potassium 3.7 mmol/L (3.5-5.1)
[2021-08-05] MEDS ORDERED: TRIAMTERENE/HCTZ 37.5/25MG CAP PO SCH (09:00)
[2021-08-05] MEDS ORDERED: ZONISAMIDE 100 MG CAPSULE PO SCH (09:00)
[2021-08-05] MEDS ORDERED: ASPIRIN 81 MG ECTAB PO SCH (09:00)
[2021-08-05] MEDS ORDERED: VANCOMYCIN HCL 1,250 MG in SODIUM CHLORIDE 0.9% 250 ML IV SCH (09:00)
[2021-08-05] MEDS ORDERED: POT PHOSPHATE MONOBASIC W/ SOD TAB PO SCH (09:00)
--- NOTE | 2021-08-05 09:04 | Fluoroscopy Report ---
FLUOROSCOPICALLY GUIDED LUMBAR PUNCTURE CLINICAL HISTORY: fever FLUOROSCOPY TIME: 10 seconds. NUMBER OF FLUOROSCOPIC IMAGES: 1 PROCEDURE: The procedure, risks and benefits were discussed with the patient including the risk of s jignesh headache, bleeding and infection. The patient agreed to the procedure and informed written cons ent was obtained. The procedure was performed by Dr. Villegas following a timeout. The right L4-L5 i nterlaminar space was targeted. Skin overlying the space was prepped and draped in sterile fashion an d local anesthesia was achieved with 1% lidocaine. Under intermittent fluoroscopic guidance, a 5 inch , 22-gauge spinal needle was directed into the thecal sac with immediate return of clear CSF. Total o f 8 cc of CSF was collected in 4 vials and sent to the laboratory as ordered. The needle was removed. The patient tolerated the procedure well and no immediate complications were evident. IMPRESSION: Successful fluoroscopically guided lumbar puncture with collection of 8 cc of clear cereb rospinal fluid which was sent to the laboratory for analysis as ordered. ACT 112: Negative or not required by law. Electronically signed by: Jonathan Villegas M.D. 08/05/2021 9:03 AM
[2021-08-05] MEDS: lamoTRIgine 100 MG TAB PO SCH (09:12)
[2021-08-05] MEDS: cefTRIAXone SODIUM 2,000 MG in DEXTROSE 5% 50 ML IV SCH (09:17)
[2021-08-05 09:18] LABS: Appearance CSF Clear; CSF Count Tube # 3; CSF Xanthrochromic No xanthochromia; Color CSF Colorless; Red Blood Cell CSF (A) 3 /uL (0-); Red Blood Cell CSF (B) 2 /uL (0-); White Blood Cell CSF (A) 2 /uL (0-5); White Blood Cell CSF (B) 3 /uL (0-5)
[2021-08-05] MEDS ORDERED: POTASSIUM PHOSPHATE 21 MMOL in SODIUM CHLORIDE 0.9% 500 ML IV ONE (09:45)
[2021-08-05 09:48] LABS: Lactate CSF 2.8 mmol/L (0.6-2.2); Total Protein CSF 54.8 mg/dl (15-45)
--- NOTE | 2021-08-05 10:52 | Consultation Report ---
NEUROLOGY CONSULTATION NOTE DATE OF CONSULTATION: 08/05/2021 CHIEF COMPLAINT: Seizure. HISTORY OF PRESENT ILLNESS: A 51-year-old female with a history of localization-related intractable epilepsy, following with [facility], on Lamictal and zonisamide, admitted for a breakthrough seizure. The patient presented to the Emergency Department yesterday for confusion and breakthrough seizure. History was obtained via the patient's boyfriend. Supposedly 3 days ago, patient started having episodes of staring and rocking back and forth. This was reported to be typical for her petit mal seizures. She does have a prior history of grand mal seizures. However, since he has known her for the last 5 years, she has only had petit mal seizures. The patient follows with Dr. Toledo at [facility]. Two days ago, she was noted to have some confusion. She was seen in the [facility] on 08/02/2021 and discharged home. Since being discharged home, she was very tired and not talking much. She had some staring episodes and movements of her hand. She was reevaluated at the [facility] on 08/03/2021. She underwent a negative CT scan of the head, it was then reported that she had a fever yesterday that resolved. Had a negative COVID-19 test and negative influenza as well as negative urinalysis and lactic acidosis. She has no leukocytosis. Per collateral, she reached out to [facility] and recommended the patient's Lamictal be increased from 125 mg twice daily to 150 mg twice daily. She presented to the Emergency Department yesterday as she had noted no improvement and had not tried increasing her medications. There was no loss of consciousness reported or loss of bowel or bladder. She had no witnessed generalized tonic-clonic seizure. In the ER, the patient was afebrile and her blood pressure is 174/110 down to 134/74. She had a CT head, which showed significant metallic artifacts secondary to electronic stimulator device on the right side of her calvarium. In the Emergency Department, she was given 2 grams of Keppra as well as Ativan 2 mg. She was loaded with Lamictal 150 mg. The Emergency Department reached out to [facility] and talked to Dr. Godfrey who recommended Lamictal 150 mg twice daily and continue her current dose of zonisamide. There was a consideration of possible need for continuous video EEG monitoring, although at that time it was deferred. Upon admission, patient was noted to be febrile overnight with a temperature max of 38.2 degrees Celsius. Urinalysis and chest x-ray were negative. Lactate was within normal limits. Urine and blood cultures were ordered. She was started on Rocephin and vancomycin. An LP was ordered for the following morning. The patient was evaluated overnight by the hospitalist team and noted to stare off to the right and noted movement of the bilateral hands within seconds, but became alert and stated she had a headache and pointed to the right side of her forehead. She had no neck stiffness. Neurology was consulted upon admission. ALLERGIES: PHENOBARBITAL. HOME MEDICATIONS: Aspirin 81 mg daily, Lamictal 150 mg twice daily, zonisamide 200 mg in the morning and 300 mg at night. PAST MEDICAL HISTORY: Intractable localization-related epilepsy, status post deep brain stimulator, hypertension. PAST SURGICAL HISTORY: NeuroPace device. FAMILY HISTORY: Pertinent for coronary artery disease and hypertension. SOCIAL HISTORY: She is a nonsmoker, drinks alcohol around the holidays. REVIEW OF SYSTEMS: All other review of systems was unremarkable except as noted above in the HPI. PHYSICAL EXAMINATION: VITAL SIGNS: Blood pressure 138/75, pulse is 60, temperature is 37.1 degrees Celsius, oxygen saturation is 97% on room air. GENERAL: The patient appears normally developed, in no acute distress. HEENT: Head is normocephalic and atraumatic. Normal eyelids. Normal conjunctivae. NECK: Supple. LUNGS: Normal respiratory effort. CARDIAC: Pulses are normal. ABDOMEN: Nondistended. SKIN: No skin rash. PSYCHIATRIC: Normal mood. NEUROLOGIC: She is awake, alert, oriented to person, place, and time. Speech is clear. Comprehension is intact. Attention is normal. Pupils are symmetric. Extraocular muscles intact. Facial sensation intact. No facial asymmetry. Intact hearing. Palate is symmetric. Good shoulder shrug. Tongue midline. Gait evaluation deferred, no tremor or myoclonic jerks, no ataxia with [id number] testing. Sensation intact to light touch. Muscle tone is normal. No focal weakness. Negative Leatha sign, no ankle clonus. DIAGNOSTIC TESTING AND LABORATORY VALUES: WBC 11.06, trended down to 8.57 this morning, hemoglobin 12.7, platelet count 316. Sodium 141, potassium 3.7, chloride 114, carbon dioxide 19, BUN 8, creatinine 0.89, glucose 99, calcium 8.2, phosphorus 1.8, magnesium 2.1, AST 8, ALT 22. TSH 1.66. Urinalysis was clear, negative protein, no glucose, trace ketones, trace leukocyte esterase, no bacteria, greater than 30 epithelial cells. Urine drug screen was negative. COVID-19 testing was negative. Blood cultures pending. Head CT noncontrast; significant metallic artifact secondary to an electronic stimulator device within the right side of the calvarium. This results in suboptimal evaluation of the brain; however, no definitive acute intracranial abnormality. Chest x- ray; decreased inspiratory effort with otherwise no acute chest disease. ASSESSMENT AND PLAN: A 51-year-old female with a history of intractable localization-related epilepsy, status post NeuroPace device implantation, on Lamictal 150 mg twice daily and Zonisamide 200/300 mg daily, admitted for presumed breakthrough seizures or complex partial seizures. The patient was loaded with Keppra 2000 mg IV and home dose of Lamictal was increased to 150 mg BID as per direction of [facility] neurology. Lamictal level is currently pending. Routine EEG has been ordered. The patient was started on broad- spectrum antimicrobials due to a low-grade fever overnight and a mild leukocytosis. Lumbar puncture is pending. At this point, we will maintain low threshold for transfer for continuous video EEG monitoring given the complexity of the patient's known epilepsy. Job ID: [id number] [facility]
[2021-08-05] MEDS ORDERED: hydrALAZINE HCL 20 MG/ML VIAL IV ONE (11:49)
[2021-08-05] MEDS ORDERED: ACETAMINOPHEN 1000 MG/100 ML IV IV STA (11:49)
[2021-08-05] MEDS ORDERED: levETIRAcetam 1,000 MG in 0.9 % SODIUM CHLORIDE 100 ML IV STA ×2 (15:12→15:59)
[2021-08-05 15:42] LABS: Creatinine Clr Calc Pharmacy 91.5 ml/min; Est GFR (African American) 81.5 ml/min; Est GFR (Non-African American) 70.3 ml/min; Potassium 3.8 mmol/L (3.5-5.1)
[2021-08-05 15:46] LABS: Albumin Globulin Ratio 0.8 (0.9-2); Bilirubin,Total 0.3 mg/dl (0.2-1); Globulin 3.8 gm/dl (2.5-4.0); Phosphorus 2.5 mg/dl (2.5-4.9); Total Protein 6.8 gm/dl (6.4-8.2)
[2021-08-05] MEDS ORDERED: LORazepam 1 MG/2 ML VIAL IV STA ×2 (15:53→17:57)
--- NOTE | 2021-08-05 16:04 | Hospitalist Progress Note ---
Date of Service August 05, 2021 Assessment & Plan (1) Seizure disorder: (2) Petit mal epilepsy: Plan: Breakthrough seizures Per admitting service notes with addendum: Has Neurostimulator in place Follows with [facility] Patient is 51-year-old female with PMH seizure disorder with neurostimulator in place, HTN presented to ER for complaint of confusion and seizure. History obtained from patient's boyfriend and chart review. Patient's boyfriend reports 3 days ago she started with episodes of staring and rocking back and forth. He reports this is typical of her petit mall seizures. Denies grand mal seizure like activity. Seen at [place] [facility] on 08/02/2021 & 08/03/2021 and discharged home. [facility] neurology recommended that patient's lamotrigine be increased from 125 mg twice daily to 150 mg twice daily. Today In ER pt afebrile, P: 87, R: 20, BP: 174/110 down to 131/74, 97% on RA. WBC: 11, known drug screen negative, UA unremarkable CT HEAD: Significant metallic artifact secondary to electronic stimulator device within the right side of the calvarium. This results in suboptimal evaluation of the brain. However, no definite acute intracranial abnormality. In ER was given 2 g Keppra, Ativan 2 mg IV, 1 L NSS, lamotrigine 150 mg p.o., ER had contacted [facility] neuro-Dr. Nguyen who had recommended lamotrigine 150 mg twice daily, continue Zonegran. Reports a long as patient woke up does not need transferred In ER patient drowsy but will follow limited commands Admit and monitor closely N.p.o. for now Lamotrigine level pending EEG Continue lamotrigine previously recommended 150 mg twice daily, continue zonisamide Neurology consult If patient with worsening or no improvement may need to consider transfer for continuous EEG monitoring 08/05/2021 Patient mostly drowsy today Was not able to take Zonegran and Lamictal this morning Status post lumbar puncture-WBC 2, lactic acid and total protein elevated Had a witnessed petit mal seizures in the afternoon 2 g IV Keppra ordered 1 mg IV Ativan ordered Discussed with Dr. Nguyen, neurologist at [facility] and accepted patient for transfer Fever Unclear etiology at this point, possibly secondary to breakthrough seizures Temperature 38.2 on admission Today, T-max 37.7 No leukocytosis Covid PCR 08/04 Negative Urinalysis: No signs of UTI Blood cultures: Pending Status post spinal tap: WBC 2 CSF cultures: Pending Currently on vancomycin and ceftriaxone (3) Hypertension: Plan: Usually on triamterene-HCTZ, on hold due to patient's drowsiness Hydralazine as needed given Monitor closely (4) Hypophosphatemia: Plan: K: 3.8, phos: 1.8, magnesium: 2.2. In ER given sodium phos 21 mmol --Phosphorus 2.5 Magnesium 2.1 DVT Prophylaxis -SCDs Full Code as per discussion with pt's boyfriend Follows with Dr Esther Flores for routine care plan of care discussed with patient and her significant in detail and at length all questions answered they are understanding, agreeable, comfortable with the plan of care Admission and Anticipated Discharge Date Admission Date: August 04, 2021 Subjective ff up for breakthrough seizure, etc Patient witnessed by significant other to have another petit mal seizure-upward rolling of eyeballs, right arm was twitching Lasted for about 30 seconds Code purple was called, went to patient's bedside immediately On my exam, the patient was drowsy but answering questions, oriented x2 States she has some headache, but no dizziness, nausea, chest pain, shortness of breath No other symptoms Discussed with neurologist Dr. Florence Recommend to start patient with 1 g IV Keppra And transfer to [facility] for possible continuous video EEG monitoring Inform patient and her significant other at the bedside They are agreeable with the plan Called [facility], discussed case with neurologist Dr. Nguyen She can accept the patient for transfer Review of Systems Review of Systems: all noted and negative except for above Physical Exam Physical Exam: General-drowsy, oriented x 3, not in distress, speaks in sentences with no effort or accessory muscle use Head- atraumatic Eyes- PERRL, EOMI, anicteric ENT- oropharynx clear Neck- supple, no JVD, no adenopathy, no thyromegaly; carotids +2/2, no bruits appreciated Lungs- clear to auscultation bilaterally, no rales/wheezes Heart- normal rate, regular rhythm; no murmur, no gallop, no rub appreciated Abdomen- normal bowel sounds, nondistended, soft, nontender, no masses or hepatosplenomegaly Extremities- no pretibial edema, no calf tenderness; peripheral pulses intact Neuro- alert, oriented x 3; neuro exam somewhat limited due to patient's drowsiness but cranial nerves grossly intact Moves all extremities equally Skin- warm & dry Results & Data Results & Data ([facility]) Vital Signs (Past 12 Hours) Vital Signs Temp Pulse Pulse Resp BP Pulse Ox 08/05/21 15:31 37.0 C 08/05/21 14:59 88 18 167/76 H 98 08/05/21 12:00 84 18 169/85 H 97 08/05/21 11:34 67 08/05/21 11:30 74 18 175/93 H 98 08/05/21 11:00 37.0 C 71 18 148/84 H 98 08/05/21 10:30 70 19 160/85 H 97 08/05/21 10:01 70 18 169/95 H 98 08/05/21 09:31 73 17 139/85 97 08/05/21 09:16 71 18 161/95 H 97 08/05/21 09:01 70 18 135/70 98 08/05/21 08:46 37.7 C H 73 17 141/87 H 99 08/05/21 07:10 37.1 C 60 20 138/75 97 all noted and reviewed including below (1) Petit mal epilepsy Intractability: intractable Status epilepticus: without status epilepticus Qualified Code(s): G40.A19 - Absence epileptic syndrome, intractable, without status epilepticus
--- NOTE | 2021-08-05 16:16 | Discharge Summary ---
Date of Service August 05, 2021 Admission HPI Per Admitting Provider Patient is 51-year-old female with PMH seizure disorder with neurostimulator in place, HTN presented to ER for complaint of confusion and seizure. History obtained from patient's boyfriend and chart review. Patient's boyfriend reports 3 days ago she started with episodes of staring and rocking back and forth. He reports this is typical of her petit mall seizures. He reports patient had prior history of grand mal seizures however since he has known her for the past 5 years she has had petit mall seizures. Patient follows with Dr. Toledo - Neurologist at [facility]. Reports two days ago patient seemed to have some confusion. She was seen at [place] [facility] on 08/02/2021 and discharged home. States since discharge home she seems to be very tired and not talking very much and is also noticed some staring episodes and movement of her hand. She was re-evaluated at [place] [facility] on 08/03/2021. She had negative CT scans there. Reported pt had fever yesterday that resolved, had negative COVID-19 test, negative influenza, UA, and no lactic acidosis or leukocytosis. ER records reviewed and reports that they had reached out to [facility] and it was recommended that patient's lamotrigine be increased from 125 mg twice daily to 150 mg twice daily. Patient's boyfriend reports that she did not have her medications today and reports he presented to [facility] ER today secondary to patient not having any improvement. Denies any noted loss of consciousness loss of control bowel or bladder, or grand mal seizure-like activity. Denies any noted diaphoresis, vomiting, diarrhea. Denies patient complaining of any CP or abdominal pain and has not noted any SOB. He states patient has 1-2 drinks on holidays however has not had any alcohol recently. Denies any known recreational drugs. In ER pt afebrile, P: 87, R: 20, BP: 174/110 down to 131/74, 97% on RA. WBC: 11, K: 3.8, phos: 1.8, magnesium: 2.2. CT HEAD: Significant metallic artifact secondary to electronic stimulator device within the right side of the calvarium. This results in suboptimal evaluation of the brain. However, no definite acute intracranial abnormality. In ER was given 2 g Keppra, Ativan 2 mg IV, 1 L NSS, lamotrigine 150 mg p.o., sodium phos 21 mmol ER had contacted [facility] neuro-Dr. Nguyen who had recommended lamotrigine 150 mg twice daily, continue Zonegran. Reports a long as patient woke up does not need transferred In ER patient drowsy but will follow limited commands. Admission Exam (Per Admitting) Constitutional General: no acute distress, obese Head: normocephalic, atraumatic Eyes: PERRL, unable to test EOMs, conjunctiva non-injected, anicteric ENT: normal inspection external ears, nose, mucous membranes moist Neck: supple, trachea midline Lungs: clear, no respiratory distress, no wheezing/rhonchi/rales CV: RRR, no murmur, no pretibial edema Abd: normal BS, soft, no apparent tenderness to palpation Ext: no cyanosis, no erythema Neuro: Drowsy, does awaken to name. Will open and close eyes on command. Noted to have episode starring with rightward gaze. Will follow commands of squeezing fists and moving feet and hands. Demurrage Man strength appears equal bilaterally. Does not speak Skin: warm, dry Discharge Data Consultations 08/04/21 13:44 ED Decision to Admit Stat 08/04/21 14:36 Consult Neurology Routine Procedures Performed FLUOROSCOPICALLY GUIDED LUMBAR PUNCTURE CLINICAL HISTORY: fever FLUOROSCOPY TIME: 10 seconds. NUMBER OF FLUOROSCOPIC IMAGES: 1 PROCEDURE: The procedure, risks and benefits were discussed with the patient including the risk of spinal headache, bleeding and infection. The patient agreed to the procedure and informed written consent was obtained. The procedure was performed by Dr. Villegas following a timeout. The right L4-L5 interlaminar space was targeted. Skin overlying the space was prepped and draped in sterile fashion and local anesthesia was achieved with 1% lidocaine. Under intermittent fluoroscopic guidance, a 5 inch, 22-gauge spinal needle was directed into the thecal sac with immediate return of clear CSF. Total of 8 cc of CSF was collected in 4 vials and sent to the laboratory as ordered. The needle was removed. The patient tolerated the procedure well and no immediate complications were evident. IMPRESSION: Successful fluoroscopically guided lumbar puncture with collection of 8 cc of clear cerebrospinal fluid which was sent to the laboratory for analysis as ordered. HEAD CT NONCONTRAST CT DOSE: 537.48 mGy.cm HISTORY: seizure TECHNIQUE: Multiaxial CT images of the head were performed without the use of intravenous contrast. Automated exposure control was utilized for this study. A dose lowering technique was utilized adhering to the principles of ALARA. Comparison: Head CT 01/19/2016. Findings: The paranasal sinuses and mastoid air cells are clear. Interval placement of a right calvarial electronic stimulator device with leads extending into the right temporal and frontal lobes. These result in significant metallic artifact with suboptimal evaluation of the brain. The residual visualized brain parenchyma shows no definite mass, hematoma, midline shift, acute infarct. The patient is small focal area of encephalomalacia within the right temporal lobe anteriorly. This could be due to the postoperative change. Impression: Significant metallic artifact secondary to an electronic stimulator device within the right side of the calvarium. This results in suboptimal evaluation of the brain. However, no definite acute intracranial abnormality. ACT 112: Negative or not required by law. Electronically signed by: Omari Lopez M.D. 08/04/2021 3:25 PM XR chest 1V portable CLINICAL HISTORY: seizure. Evaluate cardiopulmonary status COMPARISON STUDY: 01/19/2016 TECHNIQUE: 1 view of the chest FINDINGS: Single frontal view of the chest demonstrates the cardiomediastinal silhouette to be within normal limits. There is a decreased inspiratory effort with elevation of the hemidiaphragms and crowding of the bronchovascular markings at the lung bases and centrally. The lungs are clear of alveolar opacities. There is no evidence for pleural effusion. There is no evidence for vascular congestion. There is no acute osseous pathology. IMPRESSION: There is a decreased inspiratory effort with otherwise no acute chest disease. ACT 112: Negative or not required by law. Hospital Course (1) Seizure disorder: (2) Petit mal epilepsy: Breakthrough seizures Per admitting service notes with addendum: Has Neurostimulator in place Follows with [facility] Patient is 51-year-old female with PMH seizure disorder with neurostimulator in place, HTN presented to ER for complaint of confusion and seizure. History obtained from patient's boyfriend and chart review. Patient's boyfriend reports 3 days ago she started with episodes of staring and rocking back and forth. He reports this is typical of her petit mall seizures. Denies grand mal seizure like activity. Seen at [place] [facility] on 08/02/2021 & 08/03/2021 and discharged home. [facility] neurolog[facility] recommended that patient's lamotrigine be increased from 125 mg twice daily to 150 mg twice daily. Today In ER pt afebrile, P: 87, R: 20, BP: 174/110 down to 131/74, 97% on RA. WBC: 11, known drug screen negative, UA unremarkable CT HEAD: Significant metallic artifact secondary to electronic stimulator device within the right side of the calvarium. This results in suboptimal evaluation of the brain. However, no definite acute intracranial abnormality. In ER was given 2 g Keppra, Ativan 2 mg IV, 1 L NSS, lamotrigine 150 mg p.o., ER had contacted [facility] neuro-Dr. Nguyen who had recommended lamotrigine 150 mg twice daily, continue Zonegran. Reports a long as patient woke up does not need transferred In ER patient drowsy but will follow limited commands Admit and monitor closely N.p.o. for now Lamotrigine level pending EEG Continue lamotrigine previously recommended 150 mg twice daily, continue zonisamide Neurology consult If patient with worsening or no improvement may need to consider transfer for continuous EEG monitoring 08/05/2021 Patient mostly drowsy today Was not able to take Zonegran and Lamictal this morning Status post lumbar puncture-WBC 2, lactic acid and total protein elevated Had a witnessed petit mal seizures in the afternoon 2 g IV Keppra ordered 1 mg IV Ativan ordered Discussed with Dr. Nguyen, neurologist at [facility] and accepted patient for transfer Fever Unclear etiology at this point Temperature 38.2 on admission Today, T-max 37.7 No leukocytosis Covid PCR 08/04 Negative CXR: no pneumonia Urinalysis: No signs of UTI Blood cultures: Pending Status post spinal tap: CSF analysis- WBC 2 CSF cultures: Pending Currently on vancomycin and ceftriaxone IV monitor closely (3) Hypertension: Usually on triamterene-HCTZ, on hold due to patient's drowsiness Hydralazine as needed given Monitor closely (4) Hypophosphatemia: K: 3.8, phos: 1.8, magnesium: 2.2. In ER given sodium phos 21 mmol --Phosphorus 2.5 Magnesium 2.1 DVT Prophylaxis -SCDs Full Code as per discussion with pt's boyfriend Follows with Dr Esther Flores for routine care plan of care discussed with patient and her significant in detail and at length all questions answered they are understanding, agreeable, comfortable with the plan of care
[2021-08-05] MEDS ORDERED: SODIUM CHLORIDE 0.9% 1000ML 1,000 ML IV SCH (16:30)
[2021-08-05] MEDS ORDERED: ACETAMINOPHEN 1,000 MG/100 ML VIAL IV STA (17:58)
[2021-08-05 18:12] VITALS: TEMP 98.1
[2021-08-05 18:41] VITALS: BP 142/85; O2SAT 98
[2021-08-05 18:55] VITALS: PULSE 89
[2021-08-08 02:02] LABS: CMV DNA Qnt Real Time PCR Not Detected; CMV DNA Quant PCR Not Detected log IU/mL
[2021-08-08 11:03] LABS: HSV Type 1 DNA Not Detected (Not Detected); HSV Type 1&2 DNA Source CSF; HSV Type 2 DNA Not Detected (Not Detected)
[2021-08-08 23:27] LABS: Lyme DNA PCR CSF or Synovial Not detected (Not Detected); Lyme DNA Source CSF
[2021-08-10 13:45] LABS: EBV DNA Quant PCR <200 copies/mL (<200); EBV DNA Quant Source CSF; Enterovirus RNA by PCR Not Detected (Not Detected); Herpes Virus 6 (DNA) Not Detected (Not Detected); Herpes Virus 6 (DNA) Source CSF
[2021-08-12 20:28] LABS: Lyme IgG Band Pattern CSF DNR; Lyme IgG CSF NO BANDS DETECTED; Lyme IgM Band Pattern CSF DNR; Lyme IgM CSF NO BANDS DETECTED
== END 2021-08-05 19:12 | disposition short-term general hospital (02) | DRG 101 ==
LOC: ED 09:16 → SUATTDRO 14:23 → EDINP 14:23 → 2S 14:25